=== PATIENT | female | born 1960 | race Caucasian/White ===

== ENCOUNTER 2018-07-27 20:12 | Emergency (ER) | payer SELFPAY ==
[~2018-07-27] VITALS: Ht 157.5 cm; Wt 59.0 kg
[2018-07-27 21:41] LABS: BILIRUBIN,URINE NEGATIVE (NEGATIVE); CLARITY,URINE CLEAR; COLOR,URINE YELLOW; GLUCOSE, URINE (UA) NEGATIVE (NEGATIVE); KETONES,URINE NEGATIVE (NEGATIVE); LEUKOCYTE ESTERASE ,URINE 3+ (NEGATIVE); NITRITE,URINE NEGATIVE (NEGATIVE); PH,URINE 7 (5-9); PROTEIN,URINE 2+ (NEGATIVE); UROBILINOGEN,URINE 1 MG/DL (NORMAL)
[2018-07-27 21:44] LABS: BACTERIA,URINE MODERATE /HPF; RBC,URINE 0-2 /HPF; SQUAMOUS EPITHELIAL CELL,UR RARE /HPF; WBC,URINE 0-2 /HPF
--- NOTE | 2018-07-27 21:59 | ED GU-Female ---
General Chief Complaint: Abdominal/GI Problems Stated Complaint: PAIN IN LEFT SIDE ABD,NAUSEA,FEVER Nursing Triage Note: PTS STATES SHE IS HAVING LEFT SIDE BACK PAIN 5/10 CURRENTLY. PT STATES THIS IS THE SAME PAIN SHE HAS HAD NUMEROUS TIMES BEFORE CAUSED BY KIDNEY STONES. Nursing Sepsis Screen: No Definite Risk Source: patient Exam Limitations: no limitations History of Present Illness Date Seen by Provider: Jul 27, 2018 Time Seen by Provider: 21:10 Initial Comments Here with report of left-sided back pain that she believes is related to kidney stone. She reports that she's had numerous kidney stones. She also has irritable bowel syndrome and has had some loose stools recently. Denies nausea or vomiting. She is very concerned about the cost of the visit and is trying to minimize the evaluation. She just moved here from [facility] and has appointment with [facility] on July,. She also has uncontrolled hypertension but has been out of her blood pressure medicines. She states that she is getting it that done at [facility], again to decreased cost. Offered full evaluation which patient has currently declining but we'll readdress findings. Timing/Duration: yesterday Severity/Quality: moderate, aching Location: left flank Radiation: back, other (left upper leg) Activities at Onset: none Prior Genitourinary Problems: similar symptoms Sexual [place] History: not active Modifying Factors: Worsens With Movement; Improves With Resting Associated Symptoms: No dysuria, No fever/chills; lower back pain; No nausea/ vomiting, No urinary frequency Allergies and Home Medications Allergies Coded Allergies: Sulfa (Sulfonamide Antibiotics) (Verified Allergy, Unknown, 07/27/18) Patient Home Medication List Home Medication List Reviewed: Yes Review of Systems Review of Systems Constitutional: see HPI; No chills, No fever EENTM: no symptoms reported Respiratory: no symptoms reported Cardiovascular: no symptoms reported Gastrointestinal: abdominal pain, diarrhea; No nausea, No vomiting Genitourinary: denies dysuria; flank pain : No Musculoskeletal: back pain, muscle pain Skin: no symptoms reported Psychiatric/Neurological: No Symptoms Reported All Other Systemes Reviewed Negative Unless Noted: Yes Past Tcoakly-Znckbm-Xaksku Hx Past Med/Social Hx: Reviewed Nursing Past Med/Soc Hx Patient Social History Alcohol Use: Denies Use Recreational Drug Use: No Type Used: Electronic/Vapor Recent Foreign Travel: No Contact w/Someone Who Travel: No Recent Infectious Disease Expo: No Recent Hopitalizations: No Physical Abuse: No Sexual Abuse: No Seasonal Allergies Seasonal Allergies: No Past Medical History Surgeries: Yes Appendectomy, Hysterectomy, Orthopedic Respiratory: No Cardiac: Yes Hypertension Neurological: No Genitourinary: Yes Kidney Infection, Kidney Stones Gastrointestinal: Yes Irritable Bowel Musculoskeletal: No Endocrine: No HEENT: No Cancer: No Psychosocial: No Integumentary: No Blood Disorders: No Family Medical History Reviewed Nursing Family Hx Physical Exam Vital Signs Vital Signs - First Documented 07/27/18 20:52 Temp 97.3 Pulse 6 Resp 16 B/P (MAP) 193/118 (143) Pulse Ox 97 Capillary Refill : Less Than 3 Seconds Height, Weight, BMI Height: 5'2.00" Weight: 130lbs. oz. 58.068542et; BMI Method:Stated General Appearance: WD/WN, no apparent distress HEENT: PERRL/EOMI, pharynx normal Neck: full range of motion, supple Cardiovascular: regular rate, rhythm, no murmur Respiratory: lungs clear, normal breath sounds Gastrointestinal: non tender, soft Back: normal inspection, no CVA tenderness, no vertebral tenderness Extremities: non-tender, normal inspection Neurologic/Psychiatric: alert, oriented x 3 Skin: normal color, warm/dry Progress/Results/Core Measures Suspected Sepsis Recent Fever Within 48 Hours: No Infection Criteria Present: None New/Unexplained Altered Menta: No Sepsis Screen: No Definite Risk SIRS Temperature:97.3 Pulse: 6 Respiratory Rate: 16 Laboratory Tests 07/27/18 22:30: White Blood Count 9.6 Blood Pressure 193 /118 Mean: 143 Laboratory Tests 07/27/18 22:30: Creatinine 1.02, Platelet Count 259, Total Bilirubin 0.8 Results/Orders Lab Results Laboratory Tests Test 07/27/18 21:30 07/27/18 22:30 Range/Units Urine Color YELLOW Urine Clarity CLEAR Urine pH 7 5-9 Urine Specific [place] 1.015 L 1.016-1.022 Urine Protein 2+ H NEGATIVE Urine Glucose (UA) NEGATIVE NEGATIVE Urine Ketones NEGATIVE NEGATIVE Urine Nitrite NEGATIVE NEGATIVE Urine Bilirubin NEGATIVE NEGATIVE Urine Urobilinogen 1 NORMAL MG/DL Urine Leukocyte Esterase 3+ H NEGATIVE Urine RBC (Auto) 4+ H NEGATIVE Urine RBC 0-2 /HPF Urine WBC 0-2 /HPF Urine Squamous Epithelial Cells RARE /HPF Urine Crystals NONE /LPF Urine Bacteria MODERATE H /HPF Urine Casts NONE /LPF Urine Mucus NEGATIVE /LPF Urine Culture Indicated NO White Blood Count 9.6 4.3-11.0 10^3/uL Red Blood Count 5.17 4.35-5.85 10^6/uL Hemoglobin 14.7 11.5-16.0 G/DL Hematocrit 44 35-52 % Mean Corpuscular Volume 84 80-99 FL Mean Corpuscular Hemoglobin 28 25-34 PG Mean Corpuscular Hemoglobin Concent 34 32-36 G/DL Red Cell Distribution Width 12.8 10.0-14.5 % Platelet Count 259 130-400 10^3/uL Mean Platelet Volume 10.2 7.4-10.4 FL Neutrophils (%) (Auto) 69 42-75 % Lymphocytes (%) (Auto) 21 12-44 % Monocytes (%) (Auto) 10 0-12 % Eosinophils (%) (Auto) 0 0-10 % Basophils (%) (Auto) 0 0-10 % Neutrophils # (Auto) 6.6 1.8-7.8 X 10^3 Lymphocytes # (Auto) 2.0 1.0-4.0 X 10^3 Monocytes # (Auto) 0.9 0.0-1.0 X 10^3 Eosinophils # (Auto) 0.0 0.0-0.3 10^3/uL Basophils # (Auto) 0.0 0.0-0.1 10^3/uL Sodium Level 138 135-145 MMOL/L Potassium Level 4.1 3.6-5.0 MMOL/L Chloride Level 103 98-107 MMOL/L Carbon Dioxide Level 24 21-32 MMOL/L Anion Gap 11 5-14 MMOL/L Blood Urea Nitrogen 19 H 7-18 MG/DL Creatinine 1.02 0.60-1.30 MG/DL Estimat Glomerular Filtration Rate 55 BUN/Creatinine Ratio 19 Glucose Level 98 70-105 MG/DL Calcium Level 9.6 8.5-10.1 MG/DL Corrected Calcium 9.4 8.5-10.1 MG/DL Total Bilirubin 0.8 0.1-1.0 MG/DL Aspartate Amino Transf (AST/SGOT) 27 5-34 U/L Alanine Aminotransferase (ALT/SGPT) 19 0-55 U/L Alkaline Phosphatase 103 40-136 U/L Total Protein 7.1 6.4-8.2 GM/DL Albumin 4.3 3.2-4.5 GM/DL My Orders Orders - MARINA GOODRICH MD Ua Culture If Indicated (07/27/18 21:14) Ct Abd/Pelvis Wo(Kidney Stone) (07/27/18 22:18) Cbc With Automated Diff (07/27/18 22:18) Comprehensive Metabolic Panel (07/27/18 22:18) Lisinopril Tablet (Zestril Tablet) (07/27/18 23:30) Vital Signs/I&O 07/27/18 20:52 Temp 97.3 Pulse 6 Resp 16 B/P (MAP) 193/118 (143) Pulse Ox 97 Capillary Refill : Less Than 3 Seconds Blood Pressure Mean: 143 Progress Note : Progress Note Seen and evaluated. UA ordered. Monitor patient. UA is not specific. We did rediscuss the case and concerns and patient will be okay with CT scan and we will check basic labs. 2320: Lisinopril 20 mg by mouth. Discussed CT results with her. Discharged home with return precautions. Patient verbalize understanding instructions and agreement with plan. Diagnostic Imaging Diagonstic Imaging: CT Plain Films/CT/US/NM/MRI: abdomen, pelvis Comments Calcified granulomas throughout the liver and spleen. Left distal ureteral stone of approximately 5 mm with moderate hydronephrosis. Multiple nonobstructing left renal stones. 4 mm right mid ureter stone with mild hydronephrosis. Reviewed: Reviewed by Me Departure Impression Primary Impression: Left ureteral stone Additional Impression: Right ureteral stone Disposition: HOME, SELF-CARE Condition: Stable Departure-Patient Inst. Decision time for Depature: 23:26 Referrals: NO,LOCAL PHYSICIAN (PCP) Primary Care Physician Patient Instructions: Kidney Stones (DC), Renal Colic (DC) Add. Discharge Instructions: All discharge instructions reviewed with patient and/or family. Voiced understanding. Take medications as directed. You may take ibuprofen 600 mg every 8 hours as needed for pain. You may take Tylenol/acetaminophen 1000 mg every 8 hours as needed for pain. Drink plenty of fluids. Follow-up with your DrRaulito as scheduled. Return for worse pain, fever, vomiting, weakness, breathing problems or other concerns as needed. Scripts Lisinopril (Lisinopril) 20 Mg Tablet 20 MG PO DAILY, #30 TAB 0 Refills Prov: MARINA GOODRICH MD 07/27/18 Tamsulosin HCl (Tamsulosin HCl) 0.4 Mg Cap.er.24h 0.4 MG PO DAILY for Renal Colic-Stone Passage, #30 CAP Daily until stone passage Prov: MARINA GOODRICH MD 07/27/18 Copy Copies To 1: CORNELIUS RENAE TIMOTHY D MD Jul 27, 2018 21:58
[2018-07-27 22:52] LABS: BASOPHILS % (AUTO) 0 % (0-10); EOSINOPHILS % (AUTO) 0 % (0-10); HEMATOCRIT 44 % (35-52); HEMOGLOBIN 14.7 G/DL (11.5-16.0); LYMPHOCYTES % (AUTO) 21 % (12-44); MEAN CORPUSCULAR HEMOGLOBIN 28 PG (25-34); MEAN CORPUSCULAR HGB CONC 34 G/DL (32-36); MEAN CORPUSCULAR VOLUME 84 FL (80-99); MEAN PLATELET VOLUME 10.2 FL (7.4-10.4); MONOCYTES # (AUTO) 0.9 X 10^3 (0.0-1.0); MONOCYTES % (AUTO) 10 % (0-12); NEUTROPHILS # (AUTO) 6.6 X 10^3 (1.8-7.8); NEUTROPHILS % (AUTO) 69 % (42-75); PLATELET COUNT 259 10^3/uL (130-400); RED CELL DISTRIBUTION WIDTH 12.8 % (10.0-14.5); WHITE BLOOD COUNT 9.6 10^3/uL (4.3-11.0)
[2018-07-27 23:06] LABS: ALBUMIN 4.3 GM/DL (3.2-4.5); BILIRUBIN,TOTAL 0.8 MG/DL (0.1-1.0); CALCIUM 9.6 MG/DL (8.5-10.1); CREATININE SERUM 1.02 MG/DL (0.60-1.30); POTASSIUM 4.1 MMOL/L (3.6-5.0); TOTAL PROTEIN 7.1 GM/DL (6.4-8.2)
[2018-07-27] MEDS ORDERED: LISI-552 PO (23:30)
[2018-07-27] MEDS ORDERED: lisINopril 20 MG (PRINIVIL) TABLET PO ONE (23:30)
[2018-07-27] MEDS ORDERED: TAMS0.4C2 PO (23:30)
--- NOTE | 2018-07-27 23:34 | NUR ---
report given to LAZARO Nuno
[2018-07-28] MEDS ORDERED: KETOROLAC 60 MG/2 ML VIAL IM STA
[2018-07-28 00:22] VITALS: BP 189/110
--- NOTE | 2018-07-28 06:44 | Diagnostic Imaging Report ---
PROCEDURE: CT urinary tract, rule out kidney stone. TECHNIQUE: Multiple contiguous axial images were obtained through the abdomen and pelvis without the use of intravenous contrast. INDICATION: Flank pain. No prior examinations are available for comparison. FINDINGS: The heart size is normal. The lung bases are clear. There are numerous benign-appearing calcified granulomas in the liver and spleen. The pancreas is unremarkable. Adrenal glands are unremarkable. There is moderately severe left hydronephrosis secondary to a 5 mm stone in the distal left ureter just proximal left UVJ. There are several additional tiny nonobstructing left renal calculi. There is a 4 mm stone in the proximal right ureter with mild right hydronephrosis. There is moderate atherosclerotic calcification of the aorta which is nonaneurysmal. Bowel gas pattern is nonspecific. There is no free air. There is no ascites. There is no pelvic mass or adenopathy. There are mild degenerative changes in the spine. IMPRESSION: Moderate left hydronephrosis secondary to a 5 mm stone in the distal left ureter just proximal left UVJ. There are a few additional tiny nonobstructing left renal calculi. Mild right hydronephrosis secondary to a 4 mm stone in the proximal right ureter just below the right UPJ. There is no other acute abnormality in the abdomen or pelvis. Dictated by: Dictated on workstation # [id number]
== END 2018-07-28 00:22 | disposition home or self-care (01) ==
LOC: ER 20:14
DX: N13.2 Hydronephrosis with renal and ureteral calculous obstruction (principal); I10 Essential (primary) hypertension; K58.9 Irritable bowel syndrome, unspecified; Z88.2 Allergy status to sulfonamides; Z87.448 Personal history of other diseases of urinary system; Z87.442 Personal history of urinary calculi; Z90.49 Acquired absence of other specified parts of digestive tract; Z90.710 Acquired absence of both cervix and uterus
CPT/HCPCS: 36415; 74176; 80053; 81000; 85025

== ENCOUNTER 2018-08-24 11:40 | Emergency (ER) | payer SELFPAY ==
[~2018-08-24] VITALS: Ht 157.5 cm; Wt 57.6 kg
[~2018-08-24 11:40] MED LIST: LISI-552 PO; TAMS0.4C2 PO
[2018-08-24] MEDS ORDERED: ROPI1TAB40 PO (12:12)
[2018-08-24 12:37] LABS: BASOPHILS % (AUTO) 0 % (0-10); EOSINOPHILS % (AUTO) 0 % (0-10); HEMATOCRIT 46 % (35-52); HEMOGLOBIN 15.3 G/DL (11.5-16.0); LYMPHOCYTES # (AUTO) 1.2 X 10^3 (1.0-4.0); LYMPHOCYTES % (AUTO) 14 % (12-44); MEAN CORPUSCULAR HEMOGLOBIN 29 PG (25-34); MEAN CORPUSCULAR HGB CONC 34 G/DL (32-36); MEAN CORPUSCULAR VOLUME 85 FL (80-99); MEAN PLATELET VOLUME 10.1 FL (7.4-10.4); MONOCYTES # (AUTO) 0.4 X 10^3 (0.0-1.0); MONOCYTES % (AUTO) 5 % (0-12); NEUTROPHILS # (AUTO) 6.9 X 10^3 (1.8-7.8); NEUTROPHILS % (AUTO) 80 % (42-75); PLATELET COUNT 280 10^3/uL (130-400); RED CELL DISTRIBUTION WIDTH 12.9 % (10.0-14.5); WHITE BLOOD COUNT 8.6 10^3/uL (4.3-11.0)
[2018-08-24 13:01] LABS: ALANINE AMINOTRANSFERASE 16 U/L (0-55); ALBUMIN 4.4 GM/DL (3.2-4.5); ALKALINE PHOSPHATASE 102 U/L (40-136); AMYLASE 70 U/L (25-125); BUN/CREATININE RATIO 25; CALCIUM 10.1 MG/DL (8.5-10.1); CARBON DIOXIDE 26 MMOL/L (21-32); CHLORIDE 103 MMOL/L (98-107); CREATININE SERUM 0.81 MG/DL (0.60-1.30); GFR ESTIMATED > 60; GLUCOSE 117 MG/DL (70-105); LIPASE 21 U/L (8-78); POTASSIUM 4.7 MMOL/L (3.6-5.0); SODIUM 138 MMOL/L (135-145); TOTAL PROTEIN 7.3 GM/DL (6.4-8.2)
[2018-08-24] MEDS ORDERED: KETOROLAC 30 MG/ML VIAL IVP ONE (13:30)
[2018-08-24] MEDS ORDERED: NS IV 1000 ML 1,000 ML IV SCH (13:30)
--- NOTE | 2018-08-24 13:47 | Diagnostic Imaging Report ---
PROCEDURE: CT urinary tract, rule out kidney stone. TECHNIQUE: Multiple contiguous axial images were obtained through the abdomen and pelvis without the use of intravenous contrast. INDICATION: Left flank pain. COMPARISON: Comparison made with prior examination 07/27/2018. FINDINGS: Heart size is normal. The lung bases are clear. There are scattered calcified granulomas in the liver and spleen. The pancreas is unremarkable. There is persistent left hydronephrosis. The 5 mm stone is now at the left UVJ. There are a few other tiny nonobstructing stones on the left. The previously seen 5 mm calcification near the right UPJ is also unchanged. This could actually be a phlebolith. There is atherosclerotic calcification of the aorta which is nonaneurysmal. Bowel gas pattern is nonspecific. Bladder is normal. There is no pelvic mass or adenopathy. The osseous structures are unremarkable. IMPRESSION: 1. Persistent left hydronephrosis and hydroureter secondary to a 5 mm stone now at the level of the left UVJ. There are a few other additional nonobstructing left renal calculi. 2. 5 mm stone near the right UPJ is unchanged. This may actually be a phlebolith. Recommend clinical correlation. 3. Calcified granulomas in the liver and spleen. Dictated by: Dictated on workstation # [id number]
--- NOTE | 2018-08-24 13:50 | NUR ---
PT REPORTS BURNIGN AND PAIN TO IV SITE WHEN FLUSHING. IV FLUIDS NOT FLOWING THROUGH SITE. IV DCD.
--- NOTE | 2018-08-24 14:00 | NUR ---
PT STATES SHE DOES NOT WANT TO BE STUCK AGAIN AND WOULD RATHER TRY ORAL HYDRATION.
[2018-08-24 14:54] LABS: BILIRUBIN,URINE NEGATIVE (NEGATIVE); CLARITY,URINE SLIGHTLY CLOUDY; COLOR,URINE YELLOW; GLUCOSE, URINE (UA) NEGATIVE (NEGATIVE); KETONES,URINE NEGATIVE (NEGATIVE); LEUKOCYTE ESTERASE ,URINE 1+ (NEGATIVE); NITRITE,URINE NEGATIVE (NEGATIVE); PH,URINE 6 (5-9); PROTEIN,URINE 2+ (NEGATIVE); UROBILINOGEN,URINE NORMAL (NORMAL)
[2018-08-24] MEDS ORDERED: ACHD5005 PO (15:03)
[2018-08-24] MEDS ORDERED: CEPH-507 PO (15:03)
--- NOTE | 2018-08-24 15:03 | ED Abdominal Pain ---
General Chief Complaint: Abdominal/GI Problems Stated Complaint: KIDNEY STONES Nursing Triage Note: PT PRESENTS TO ED WITH COMPLAINTS OF KIDNEY STONES X 2 WEEKS AGO. REPORTS SHE HAS STRAINED HER URNINE BUT HAS NOT PASSED THEM YET. PT STATES TODAY SHE STARTED HAVING MORE SEVERE L L QUADRANT PAIN. Sepsis Screen: No Definite Risk Source of Information: Patient Exam Limitations: No Limitations History of Present Illness Date Seen by Provider: Aug 24, 2018 Time Seen by Provider: 12:19 Initial Comments 58-year-old female who presents to the emergency room with complaints of kidney stones for the past 2 weeks. She has been seen and evaluated in the emergency room and has been straining her urine has not passed any kidney stones. She has mild left lower quadrant abdominal pain that radiates to her flank. Reports nausea denies vomiting. Timing/Duration: Other (2 weeks) Severity/Quality: Sharp Location: LLQ Radiation: Flank (Left) Associated Symptoms: Nausea/Vomiting Allergies and Home Medications Allergies Coded Allergies: Sulfa (Sulfonamide Antibiotics) (Verified Allergy, Unknown, 07/27/18) Home Medications Cephalexin 500 Mg Capsule, 500 MG PO TID Prescribed by: OMARI CHRISTY on 08/24/18 1503 Hydrocodone Bit/Acetaminophen 1 Tab Tab, 1 EACH PO Q4-6HR PRN for PAIN-MODERATE Prescribed by: OMARI CHRISTY on 08/24/18 1503 Lisinopril 20 Mg Tablet, 20 MG PO DAILY Prescribed by: MARINA GOODRICH on 07/27/18 2330 Tamsulosin HCl 0.4 Mg Cap.er.24h, 0.4 MG PO DAILY Daily until stone passage Prescribed by: MARINA GOODRICH on 07/27/18 2330 Patient Home Medication List Home Medication List Reviewed: Yes Review of Systems Review of Systems Constitutional: no symptoms reported, see HPI Gastrointestinal: See HPI, Abdominal Pain, Nausea All Other Systems Reviewed Negative Unless Noted: Yes Past Rlqhgau-Syytwk-Whddif Hx Past Med/Social Hx: Reviewed Nursing Past Med/Soc Hx Patient Social History Alcohol Use: Denies Use Recreational Drug Use: No (PAST HX) Smoking Status: Former Smoker Type Used: Electronic/Vapor Former Smoker, Quit: Aug 16, 2001 Recent Foreign Travel: No Contact w/Someone Who Travel: No Recent Infectious Disease Expo: No Recent Hopitalizations: No Physical Abuse: No Sexual Abuse: No Fear: No Seasonal Allergies Seasonal Allergies: No Past Medical History Surgeries: Yes Appendectomy, Hysterectomy, Orthopedic Respiratory: No Cardiac: Yes Hypertension Neurological: No Genitourinary: Yes Kidney Infection, Kidney Stones Gastrointestinal: Yes Irritable Bowel Musculoskeletal: Yes ("RESTLESS BODY") Endocrine: No HEENT: No Cancer: No Psychosocial: No Integumentary: No Blood Disorders: No Family Medical History Reviewed Nursing Family Hx Physical Exam Vital Signs Vital Signs - First Documented 08/24/18 12:03 Temp 95.3 Pulse 63 Resp 18 B/P (MAP) 136/90 (105) Pulse Ox 98 Capillary Refill : Less Than 3 Seconds Height/Weight/BMI Height: 5'2.00" Weight: 127lbs. oz. 57.400855bt; BMI Method:Stated General Appearance: WD/WN, no apparent distress Respiratory: chest non-tender, lungs clear, normal breath sounds, no respiratory distress, no accessory muscle use Cardiovascular: normal peripheral pulses, regular rate, rhythm, no edema, no gallop, no JVD, no murmur Gastrointestinal: normal bowel sounds, non tender (Specifically left lower quadrant), soft, no organomegaly, no pulsatile mass Extremities: normal capillary refill Neurologic/Psychiatric: alert, normal mood/affect, oriented x 3 Skin: normal color, warm/dry Progress/Results/Core Measures Results/Orders Lab Results Laboratory Tests Test 08/24/18 12:20 08/24/18 14:44 Range/Units White Blood Count 8.6 4.3-11.0 10^3/uL Red Blood Count 5.34 4.35-5.85 10^6/uL Hemoglobin 15.3 11.5-16.0 G/DL Hematocrit 46 35-52 % Mean Corpuscular Volume 85 80-99 FL Mean Corpuscular Hemoglobin 29 25-34 PG Mean Corpuscular Hemoglobin Concent 34 32-36 G/DL Red Cell Distribution Width 12.9 10.0-14.5 % Platelet Count 280 130-400 10^3/uL Mean Platelet Volume 10.1 7.4-10.4 FL Neutrophils (%) (Auto) 80 H 42-75 % Lymphocytes (%) (Auto) 14 12-44 % Monocytes (%) (Auto) 5 0-12 % Eosinophils (%) (Auto) 0 0-10 % Basophils (%) (Auto) 0 0-10 % Neutrophils # (Auto) 6.9 1.8-7.8 X 10^3 Lymphocytes # (Auto) 1.2 1.0-4.0 X 10^3 Monocytes # (Auto) 0.4 0.0-1.0 X 10^3 Eosinophils # (Auto) 0.0 0.0-0.3 10^3/uL Basophils # (Auto) 0.0 0.0-0.1 10^3/uL Sodium Level 138 135-145 MMOL/L Potassium Level 4.7 3.6-5.0 MMOL/L Chloride Level 103 98-107 MMOL/L Carbon Dioxide Level 26 21-32 MMOL/L Anion Gap 9 5-14 MMOL/L Blood Urea Nitrogen 20 H 7-18 MG/DL Creatinine 0.81 0.60-1.30 MG/DL Estimat Glomerular Filtration Rate > 60 BUN/Creatinine Ratio 25 Glucose Level 117 H 70-105 MG/DL Calcium Level 10.1 8.5-10.1 MG/DL Corrected Calcium 9.8 8.5-10.1 MG/DL Total Bilirubin 1.0 0.1-1.0 MG/DL Aspartate Amino Transf (AST/SGOT) 23 5-34 U/L Alanine Aminotransferase (ALT/SGPT) 16 0-55 U/L Alkaline Phosphatase 102 40-136 U/L Total Protein 7.3 6.4-8.2 GM/DL Albumin 4.4 3.2-4.5 GM/DL Amylase Level 70 25-125 U/L Lipase 21 8-78 U/L Urine Color YELLOW Urine Clarity SLIGHTLY CLOUDY Urine pH 6 5-9 Urine Specific [place] 1.015 L 1.016-1.022 Urine Protein 2+ H NEGATIVE Urine Glucose (UA) NEGATIVE NEGATIVE Urine Ketones NEGATIVE NEGATIVE Urine Nitrite NEGATIVE NEGATIVE Urine Bilirubin NEGATIVE NEGATIVE Urine Urobilinogen NORMAL NORMAL MG/DL Urine Leukocyte Esterase 1+ H NEGATIVE Urine RBC (Auto) 5+ H NEGATIVE Urine RBC >100 H /HPF Urine WBC 5-10 H /HPF Urine Squamous Epithelial Cells 2-5 /HPF Urine Crystals NONE /LPF Urine Bacteria FEW H /HPF Urine Casts NONE /LPF Urine Mucus MODERATE H /LPF Urine Culture Indicated YES Micro Results Microbiology 08/24/18 Urine Culture - Preliminary, Resulted Mixed Bacterial Yesenia With Gram Negative Bacillus 1 My Orders Orders - OMARI CHRISTY Ct Abd/Pelvis Wo(Kidney Stone) (08/24/18 12:19) Abdomen/Kub 1view (08/24/18 12:19) Saline Lock/Iv-Start (08/24/18 12:19) Comprehensive Metabolic Panel (08/24/18 12:19) Lipase (08/24/18 12:19) Amylase (08/24/18 12:19) Ua Culture If Indicated (08/24/18 12:19) Cbc With Automated Diff (08/24/18 12:19) Ketorolac Injection (Toradol Injection) (08/24/18 13:30) Ns Iv 1000 Ml (Sodium Chloride 0.9%) (08/24/18 13:30) Urine Culture (08/24/18 14:44) Vital Signs/I&O 08/24/18 08/24/18 12:03 15:29 Temp 95.3 96.4 Pulse 63 60 Resp 18 18 B/P (MAP) 136/90 (105) 132/84 (100) Pulse Ox 98 99 Blood Pressure Mean: 105 Progress Progress Note : Time: 15:00 Progress Note I have seen and evaluated the patient. I have reviewed her laboratory and imaging studies with her. Her pain has improved with Toradol. She agrees with plan of care, plans for follow-up with Dr. Christy, return precautions were given. Diagnostic Imaging Diagonstic Imaging: CT Plain Films/CT/US/NM/MRI: abdomen, pelvis Comments NAME: JAKY NÚÑEZ [facility] REC#: [id number] PT STATUS: REG ER : 1960 PHYSICIAN: OMARI CHRISTY ADMIT DATE: 08/24/18/ER Signed Date of Exam: 08/24/18 CT ABD/PELVIS WO(KIDNEY STONE) PROCEDURE: CT urinary tract, rule out kidney stone. TECHNIQUE: Multiple contiguous axial images were obtained through the abdomen and pelvis without the use of intravenous contrast. INDICATION: Left flank pain. COMPARISON: Comparison made with prior examination 07/27/2018. FINDINGS: Heart size is normal. The lung bases are clear. There are scattered calcified granulomas in the liver and spleen. The pancreas is unremarkable. There is persistent left hydronephrosis. The 5 mm stone is now at the left UVJ. There are a few other tiny nonobstructing stones on the left. The previously seen 5 mm calcification near the right UPJ is also unchanged. This could actually be a phlebolith. There is atherosclerotic calcification of the aorta which is nonaneurysmal. Bowel gas pattern is nonspecific. Bladder is normal. There is no pelvic mass or adenopathy. The osseous structures are unremarkable. IMPRESSION: 1. Persistent left hydronephrosis and hydroureter secondary to a 5 mm stone now at the level of the left UVJ. There are a few other additional nonobstructing left renal calculi. 2. 5 mm stone near the right UPJ is unchanged. This may actually be a phlebolith. Recommend clinical correlation. 3. Calcified granulomas in the liver and spleen. Dictated by: Dictated on workstation # [id number] Dict: 08/24/18 1335 Trans: 08/24/18 1402 Interpreted by: YOHAN HUMMEL MD Electronically signed by: YOHAN HUMMEL MD 08/24/18 1402 Departure Impression Primary Impression: Kidney stones Disposition: 01 HOME, SELF-CARE Condition: Stable/Unchanged Departure-Patient Inst. Decision time for Depature: 15:00 Referrals: [facility] [place]) Primary Care Physician SHANNON MCCALL (Family) Primary Care Physician ANGELINA CHRISTY MD Patient Instructions: Kidney Stones (DC) Add. Discharge Instructions: Take medications as directed. Drink plenty of clear liquids to stay hydrated. Call Dr. Christy's office today for an appointment time for further evaluation and treatment. Return back to the emergency room for worsening symptoms or concerns as needed. All discharge instructions reviewed with patient and/or family. Voiced understanding. Scripts Cephalexin (Keflex) 500 Mg Capsule 500 MG PO TID, #21 CAP Prov: OMARI CHRISTY 08/24/18 Hydrocodone Bit/Acetaminophen (Hydrocodone/Acetaminophen 5/325mg Tablet) 1 Tab Tab 1 EACH PO Q4-6HR PRN for PAIN-MODERATE MDD 10, #14 TAB Prov: OMARI CHRISTY 08/24/18 OMARI CHRISTY Aug 24, 2018 15:03
[2018-08-24 15:12] LABS: BACTERIA,URINE FEW /HPF; RBC,URINE >100 /HPF
[2018-08-24 15:29] VITALS: BP 132/84
--- NOTE | 2018-08-26 14:37 | Diagnostic Imaging Report ---
Supine abdomen at 1:25 PM. INDICATION: Left lower quadrant pain The recent CT abdomen/pelvis exam performed on 08/24/2018 noted a 5.3 MM obstructive calculus at the uterovesical junction on the left. There are 2 rounded calcific densities overlying the low pelvis on the left. I'm not certain if these correspond to the obstructive calculus seen on the CT exam. There is also a linear almost 7 MM calcific density near the coccyx on the left. It would be unlikely that this is related to the calculus in question. The calcification within the mid ureter on the right seen previously is difficult to appreciate as well. No other pathological calcification is seen. There are again calcifications within both the liver and particularly the spleen. These may be a sequela of prior exposure to histoplasmosis. IMPRESSION: 1. The obstructive calculus in the distal left ureter seen previously is difficult to visualize as is the calculus within the midportion of the right ureter. 2. If further imaging is desired, then a repeat CT abdomen/pelvis exam would be recommended. Dictated by: Dictated on workstation # [id number]
== END 2018-08-24 15:29 | disposition home or self-care (01) ==
LOC: ER 11:40 → EDUNIT# 11:40 → ER 15:29
DX: N13.2 Hydronephrosis with renal and ureteral calculous obstruction (principal); I10 Essential (primary) hypertension; K58.9 Irritable bowel syndrome, unspecified; Z88.2 Allergy status to sulfonamides; Z87.891 Personal history of nicotine dependence; Z90.49 Acquired absence of other specified parts of digestive tract; Z90.89 Acquired absence of other organs
CPT/HCPCS: 36415; 74018; 74176; 80053; 81000; 82150; 83690; 85025; 87077; 87088

== ENCOUNTER 2018-09-22 21:37 | Emergency (ER) | payer SELFPAY ==
[~2018-09-22] VITALS: Ht 157.5 cm; Wt 57.6 kg
[~2018-09-22 21:37] MED LIST changes: +ACHD5005 PO; +CEPH-507 PO; +ROPI1TAB40 PO
[2018-09-22] MEDS ORDERED: NS IV 1000 ML 1,000 ML IV SCH (21:44)
[2018-09-22 21:55] LABS: BASOPHILS % (AUTO) 0 % (0-10); EOSINOPHILS % (AUTO) 0 % (0-10); HEMATOCRIT 43 % (35-52); HEMOGLOBIN 15.3 G/DL (11.5-16.0); LYMPHOCYTES # (AUTO) 1.7 X 10^3 (1.0-4.0); LYMPHOCYTES % (AUTO) 21 % (12-44); MEAN CORPUSCULAR HEMOGLOBIN 29 PG (25-34); MEAN CORPUSCULAR HGB CONC 35 G/DL (32-36); MEAN CORPUSCULAR VOLUME 83 FL (80-99); MEAN PLATELET VOLUME 10.2 FL (7.4-10.4); MONOCYTES # (AUTO) 0.5 X 10^3 (0.0-1.0); MONOCYTES % (AUTO) 6 % (0-12); NEUTROPHILS # (AUTO) 5.8 X 10^3 (1.8-7.8); NEUTROPHILS % (AUTO) 72 % (42-75); PLATELET COUNT 303 10^3/uL (130-400); RED CELL DISTRIBUTION WIDTH 12.7 % (10.0-14.5); WHITE BLOOD COUNT 8.1 10^3/uL (4.3-11.0)
--- NOTE | 2018-09-22 21:58 | ED Abdominal Pain ---
General Stated Complaint: BACK PAIN Source of Information: Patient Exam Limitations: No Limitations History of Present Illness Date Seen by Provider: Sep 22, 2018 Time Seen by Provider: 21:31 Initial Comments Here with complaint of left lower quadrant and left flank pain. Been going on for the last several hours. Does have history of kidney stone on the left and was unable to get surgical removal of the stone. They stated that her kidneys not working and was trembling up. She has been unable to see urology due to unable to make payment. She is following with [facility] and has been initiated on blood pressure agents. She has not taken anything for the pain tonight. Timing/Duration: 4-6 Hours Severity/Quality: Moderate, Severe Location: LLQ Radiation: Flank Modifying Factors: Improves With Resting Associated Symptoms: No Fever/Chills; Nausea/Vomiting; No Shortness of Air, No Weakness Allergies and Home Medications Allergies Coded Allergies: Sulfa (Sulfonamide Antibiotics) (Verified Allergy, Unknown, 07/27/18) Home Medications Cephalexin 500 Mg Capsule, 500 MG PO TID Prescribed by: OMARI CHRISTY on 08/24/18 1503 Hydrocodone Bit/Acetaminophen 1 Tab Tab, 1 EACH PO Q4-6HR PRN for PAIN-MODERATE Prescribed by: OMARI CHRISTY on 08/24/18 1503 Lisinopril 20 Mg Tablet, 20 MG PO DAILY Prescribed by: MARINA GOODRICH on 07/27/18 2330 Tamsulosin HCl 0.4 Mg Cap.er.24h, 0.4 MG PO DAILY Daily until stone passage Prescribed by: MARINA GOODRICH on 07/27/18 2330 Patient Home Medication List Home Medication List Reviewed: Yes Review of Systems Review of Systems Constitutional: see HPI; No chills, No fever EENTM: No Symptoms Reported Respiratory: No Symptoms Reported Cardiovascular: No Symptoms Reported Gastrointestinal: See HPI, Abdominal Pain, Nausea Genitourinary: See HPI, Flank Pain, Pain Musculoskeletal: no symptoms reported All Other Systems Reviewed Negative Unless Noted: Yes Past Lhuuclw-Mpjilo-Ithcwh Hx Past Med/Social Hx: Reviewed Nursing Past Med/Soc Hx Patient Social History Alcohol Use: Denies Use Recreational Drug Use: No Type Used: Electronic/Vapor Former Smoker, Quit: Aug 16, 2001 Recent Foreign Travel: No Contact w/Someone Who Travel: No Recent Hopitalizations: No Seasonal Allergies Seasonal Allergies: No Past Medical History Surgeries: Yes Appendectomy, Hysterectomy, Orthopedic Respiratory: No Cardiac: Yes Hypertension Neurological: No Genitourinary: Yes Kidney Infection, Kidney Stones Gastrointestinal: Yes Irritable Bowel Musculoskeletal: Yes ("RESTLESS BODY") Endocrine: No HEENT: No Cancer: No Psychosocial: No Integumentary: No Blood Disorders: No Family Medical History Reviewed Nursing Family Hx No Pertinent Family Hx Physical Exam Vital Signs Vital Signs - First Documented 09/22/18 09/23/18 21:37 01:45 Temp 97.7 Pulse 55 Resp 22 B/P (MAP) 190/119 (142) Pulse Ox 95 Capillary Refill : Height/Weight/BMI Height: 5'2.00" Weight: 127lbs. oz. [id number]; BMI Method:Stated General Appearance: WD/WN, moderate distress HEENT: PERRL/EOMI, pharynx normal Neck: full range of motion, supple Respiratory: lungs clear, normal breath sounds Cardiovascular: regular rate, rhythm, no murmur Gastrointestinal: non tender, soft Extremities: non-tender, normal inspection Back: normal inspection, no CVA tenderness, no vertebral tenderness Neurologic/Psychiatric: alert, normal mood/affect, oriented x 3 Skin: normal color, warm/dry Focused Exam Lactate Level 09/22/18 21:40: Lactic Acid Level 1.07 Lactic Acid Level Laboratory Tests Test 09/22/18 21:40 Lactic Acid Level 1.07 MMOL/L (0.50-2.00) Progress/Results/Core Measures Results/Orders Lab Results Laboratory Tests Test 09/22/18 21:40 09/22/18 21:50 Range/Units White Blood Count 8.1 4.3-11.0 10^3/uL Red Blood Count 5.22 4.35-5.85 10^6/uL Hemoglobin 15.3 11.5-16.0 G/DL Hematocrit 43 35-52 % Mean Corpuscular Volume 83 80-99 FL Mean Corpuscular Hemoglobin 29 25-34 PG Mean Corpuscular Hemoglobin Concent 35 32-36 G/DL Red Cell Distribution Width 12.7 10.0-14.5 % Platelet Count 303 130-400 10^3/uL Mean Platelet Volume 10.2 7.4-10.4 FL Neutrophils (%) (Auto) 72 42-75 % Lymphocytes (%) (Auto) 21 12-44 % Monocytes (%) (Auto) 6 0-12 % Eosinophils (%) (Auto) 0 0-10 % Basophils (%) (Auto) 0 0-10 % Neutrophils # (Auto) 5.8 1.8-7.8 X 10^3 Lymphocytes # (Auto) 1.7 1.0-4.0 X 10^3 Monocytes # (Auto) 0.5 0.0-1.0 X 10^3 Eosinophils # (Auto) 0.0 0.0-0.3 10^3/uL Basophils # (Auto) 0.0 0.0-0.1 10^3/uL Prothrombin Time 12.8 12.2-14.7 SEC INR Comment 0.9 0.8-1.4 Activated Partial Thromboplast Time 43 H 24-35 SEC Sodium Level 138 135-145 MMOL/L Potassium Level 4.0 3.6-5.0 MMOL/L Chloride Level 106 98-107 MMOL/L Carbon Dioxide Level 21 21-32 MMOL/L Anion Gap 11 5-14 MMOL/L Blood Urea Nitrogen 16 7-18 MG/DL Creatinine 0.73 0.60-1.30 MG/DL Estimat Glomerular Filtration Rate > 60 BUN/Creatinine Ratio 22 Glucose Level 111 H 70-105 MG/DL Lactic Acid Level 1.07 0.50-2.00 MMOL/L Calcium Level 9.8 8.5-10.1 MG/DL Corrected Calcium 9.6 8.5-10.1 MG/DL Total Bilirubin 0.7 0.1-1.0 MG/DL Aspartate Amino Transf (AST/SGOT) 25 5-34 U/L Alanine Aminotransferase (ALT/SGPT) 18 0-55 U/L Alkaline Phosphatase 101 40-136 U/L Total Protein 7.2 6.4-8.2 GM/DL Albumin 4.2 3.2-4.5 GM/DL Urine Color YELLOW Urine Clarity CLEAR Urine pH 7 5-9 Urine Specific [place] 1.015 L 1.016-1.022 Urine Protein 2+ H NEGATIVE Urine Glucose (UA) NEGATIVE NEGATIVE Urine Ketones 2+ H NEGATIVE Urine Nitrite NEGATIVE NEGATIVE Urine Bilirubin NEGATIVE NEGATIVE Urine Urobilinogen NORMAL NORMAL MG/DL Urine Leukocyte Esterase 1+ H NEGATIVE Urine RBC (Auto) 4+ H NEGATIVE Urine RBC TNTC H /HPF Urine WBC 2-5 /HPF Urine Squamous Epithelial Cells 0-2 /HPF Urine Crystals PRESENT H /LPF Urine Amorphous Sediment MOD [place]LVIA PHOSPHATE H /LPF Urine Bacteria FEW H /HPF Urine Casts NONE /LPF Urine Mucus LARGE H /LPF Urine Culture Indicated NO My Orders Orders - MARINA GOODRICH MD Cbc With Automated Diff (09/22/18 21:44) Comprehensive Metabolic Panel (09/22/18 21:44) Blood Culture (09/22/18 21:44) Urinalysis (09/22/18 21:44) Urine Culture (09/22/18 21:44) Protime With Inr (09/22/18 21:44) Partial Thromboplastin Time (09/22/18 21:44) Chest 1 View, Ap/Pa Only (09/22/18 21:44) Saline Lock/Iv-Start (09/22/18 21:44) Saline Lock/Iv-Start (09/22/18 21:44) Vital Signs Adult Sepsis Patie Q15M (09/22/18 21:44) O2 (09/22/18 21:44) Remove Rings In Anticipation O (09/22/18 21:44) Lactic Acid Analyzer (09/22/18 21:44) Ns Iv 1000 Ml (Sodium Chloride 0.9%) (09/22/18 21:44) Ct Abd/Pelvis Wo(Kidney Stone) (09/22/18 22:19) Rx-Hydrocodone/Apap 5-325 Mg (Rx-Vicodin (09/23/18 01:31) Medications Given in ED Current Medications Medications Dose Ordered Sig/John Route Start Time Stop Time Status Last Admin Dose Admin Acetaminophen/ Hydrocodone Bitart 1 ea STK-MED ONCE PO 09/23/18 01:31 09/23/18 01:34 DC 09/23/18 01:34 1 EA Vital Signs/I&O 09/22/18 09/22/18 09/23/18 21:37 22:15 01:45 Temp 97.7 97.7 Pulse 55 65 Resp 22 22 B/P (MAP) 190/119 (142) 155/101 (119) Pulse Ox 95 09/23/18 00:00 Intake Total 1000 ml Balance 1000 ml Progress Progress Note : Progress Note Seen and evaluated. IV, labs and UA ordered. CT abdomen and pelvis without contrast kidney stone protocol ordered. Patient did receive normal saline 1 L bolus. 0130: Patient CT results were noted. Patient resting comfortably throughout the ED stay. There is a 7 mm stone that is in the bladder now. There is mild left hydroureteronephrosis. Patient was given a go pack of hydrocodone and prescription for a few more with prescription for Keflex. Overall she is doing much better at time of discharge. Discharged home with return precautions. Patient verbalize understanding instructions and agreement with plan. Diagnostic Imaging Diagonstic Imaging: CT Plain Films/CT/US/NM/MRI: abdomen, pelvis Comments Mild left hydroureteronephrosis. There is a 7 mm stone which appears to have passed through the UVJ and his larynx apparently within the bladder. Reviewed: Reviewed [place] Study, Reviewed by Me Departure Impression Primary Impression: Renal calculus, left Additional Impression: Hydroureteronephrosis Disposition: HOME, SELF-CARE Condition: Improved Departure-Patient Inst. Referrals: [facility] (PCP) Primary Care Physician SHANNON MCCALL (Family) Primary Care Physician Patient Instructions: Kidney Stones (DC) Add. Discharge Instructions: You may take ibuprofen 600 mg every 8 hours as needed for pain. You may take the prescribed pain medicine as directed. If you're not taking the prescribed pain medicine you may take Tylenol 1000 mg every 8 hours as needed for fever or pain. Follow up with your doctor as directed. Take other medications as prescribed. Return for worse pain, fever, vomiting, weakness, breathing problems or other concerns as needed. Copy Copies To 1: SEBAS BEYER MD, TIMOTHY D MD Sep 22, 2018 21:58
[2018-09-22 21:59] LABS: BILIRUBIN,URINE NEGATIVE (NEGATIVE); CLARITY,URINE CLEAR; COLOR,URINE YELLOW; GLUCOSE, URINE (UA) NEGATIVE (NEGATIVE); KETONES,URINE 2+ (NEGATIVE); LEUKOCYTE ESTERASE ,URINE 1+ (NEGATIVE); NITRITE,URINE NEGATIVE (NEGATIVE); PH,URINE 7 (5-9); PROTEIN,URINE 2+ (NEGATIVE); UROBILINOGEN,URINE NORMAL (NORMAL)
[2018-09-22 22:11] LABS: INR 0.9 (0.8-1.4); PROTHROMBIN TIME PATIENT 12.8 SEC (12.2-14.7)
[2018-09-22 22:14] LABS: AMORPHOUS SEDIMENT,UR MOD AMOR PHOSPHATE /LPF; BACTERIA,URINE FEW /HPF; RBC,URINE TNTC /HPF; SQUAMOUS EPITHELIAL CELL,UR 0-2 /HPF
[2018-09-22 22:16] LABS: ALANINE AMINOTRANSFERASE 18 U/L (0-55); ALBUMIN 4.2 GM/DL (3.2-4.5); ALKALINE PHOSPHATASE 101 U/L (40-136); BILIRUBIN,TOTAL 0.7 MG/DL (0.1-1.0); BUN/CREATININE RATIO 22; CALCIUM 9.8 MG/DL (8.5-10.1); CARBON DIOXIDE 21 MMOL/L (21-32); CHLORIDE 106 MMOL/L (98-107); CREATININE SERUM 0.73 MG/DL (0.60-1.30); GFR ESTIMATED > 60; GLUCOSE 111 MG/DL (70-105); SODIUM 138 MMOL/L (135-145); TOTAL PROTEIN 7.2 GM/DL (6.4-8.2)
[2018-09-23] MEDS ORDERED: RX-HYDROCODONE/APAP 5/325 MG #4 TAB PK PO ONE (01:31)
[2018-09-23 01:45] VITALS: BP 155/101
--- NOTE | 2018-09-23 06:24 | Diagnostic Imaging Report ---
INDICATION: Back pain. Upright portable AP view of the chest is obtained. There is no previous study for comparison. FINDINGS: There is air trapping, bilaterally. No pneumothorax is identified. There is no significant pleural fluid. No consolidation is identified. IMPRESSION: Air trapping indicating emphysema without evidence of acute abnormality in the chest. Dictated by: Dictated on workstation # [id number]
--- NOTE | 2018-09-23 07:39 | Diagnostic Imaging Report ---
PROCEDURE: CT urinary tract, rule out kidney stone. TECHNIQUE: Multiple contiguous axial images were obtained through the abdomen and pelvis without the use of intravenous contrast. Auto Exposure Controls were utilized during the CT exam to meet ALARA standards for radiation dose reduction. INDICATION: Back pain. Study compared to 08/24/2018. An elongated calculus appears to have passed entirely through the UVJ and is now within the urinary bladder lumen dependently slightly left of midline. The stone measuring long axis of 8mm with transverse width of 3.4 mm. There is no grecia hydroureteronephrosis. There is mild ectasia of the left renal calyces and ureter which probably reflects recent stone passage. No bowel obstruction or ileus. There is no appendicitis or diverticulitis. There is mild hepatic and extensive splenic involvement by benign calcified granulomata. The gallbladder unremarkable. There is no bile duct dilatation. The adrenals negative. No additional opaque intrarenal stone burden is found. The atherosclerotic aorta, aortoiliac vessels nonaneurysmal. There is no pneumatosis or free gas. IMPRESSION: Elongated stone within the lumen of the urinary bladder probably recently passed from the left with minimal left-sided ureteral and calyceal ectasia but no grecia hydronephrosis. No additional stone burden. No other acute or subacute finding. Dictated by: Dictated on workstation # [id number]
== END 2018-09-23 01:45 | disposition home or self-care (01) ==
LOC: EDUNIT# 21:37 → ER 21:38
DX: N13.2 Hydronephrosis with renal and ureteral calculous obstruction (principal); I10 Essential (primary) hypertension; K58.9 Irritable bowel syndrome, unspecified; Z88.2 Allergy status to sulfonamides; Z87.891 Personal history of nicotine dependence; Z90.49 Acquired absence of other specified parts of digestive tract; Z90.710 Acquired absence of both cervix and uterus
CPT/HCPCS: 36415; 71045; 74176; 80053; 81000; 83605; 85025; 85610; 85730; 87040; 87088